=== PATIENT | male | born 1970 | race African-American/Black ===

== ENCOUNTER 2016-06-09 20:44 | Emergency (ER) | payer OTHER ==
[2016-06-09 21:51] VITALS: BP 116/68
== END 2016-06-09 23:16 | disposition left against medical advice (07) ==
LOC: ER 20:44
DX: Z53.9 Procedure and treatment not carried out, unspecified reason (principal); M25.50 Pain in unspecified joint

== ENCOUNTER 2017-03-05 10:32 | Emergency (ER) | payer SELFPAY ==
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
[2017-03-05 12:17] VITALS: BP 116/76
== END 2017-03-05 12:15 | disposition home or self-care (01) ==
LOC: ER 10:32
DX: D86.9 Sarcoidosis, unspecified (principal); G89.29 Other chronic pain; M54.5 Low back pain
CPT/HCPCS: 99283